=== PATIENT | male | born 1985 | race Caucasian/White ===

== ENCOUNTER 2025-01-01 18:22 | Emergency (ER) | payer OTHER ==
[~2025-01-01] VITALS: Ht 185.4 cm; Wt 85.3 kg
[2025-01-01 18:42] VITALS: BP 160/95; TEMP 97.7; O2SAT 98
== END 2025-01-01 19:27 | disposition left against medical advice (07) ==
LOC: ER 18:40
DX: R10.9 Unspecified abdominal pain (principal)